=== PATIENT | female | born 2000 | race Caucasian/White ===

== ENCOUNTER → 2025-01-20 15:09 | Outpatient (REF) | payer BC, SELFPAY | LOC: HWRAD 15:09 | PROVIDERS: ATTENDING PHYSICIAN Nurse Practitioner Family | DX: R07.81 Pleurodynia (principal); M94.0 Chondrocostal junction syndrome [Tietze] | CPT/HCPCS: 71111 ==

== ENCOUNTER 2025-02-18 07:41 | Emergency (ER) | payer BC, SELFPAY ==
[2025-02-18 07:46] VITALS: BP 114/84
[2025-02-18 08:12] VITALS: BMI 24.6
--- NOTE | 2025-02-18 08:53 | ED.GENMED ---
History of Present Illness
General
Chief Complaint: Headache
Source: patient and records
Exam Limitations: none
Time Seen by Provider: 02/18/25 07:55
Nursing documentation reviewed up to this point in time: agreed with
History of Present Illness
History of Present Illness:
24-year-old female with past medical history of migraines and vertigo presents to the emergency room for evaluation of headache and multiple other complaints. Patient reports symptoms have been ongoing for about a week�initially they had been
improving but over the past 24 hours she feels they have flared up once again. She reports diffuse pressure like headache associated with some photosensitivity, nausea and vomiting. She has some dizziness. She says the symptoms are typical for
her usual migraines. She says it has been quite sometime since her last migraine but when they get this severe she typically needs to receive IV medications. She does note that she has recently had URI symptoms with congestion and cough that she
thinks may have triggered her symptoms.
Past History
Past History
ED Past Medical History: Other (migraine HAs)
ED Past Surgical History: Other ([place] teeth)
Social History
Tobacco: Non-smoker
Alcohol: None
Drug: None
Personal: Single
Living: with family
Employment: Student
Review of Systems
Review of Systems
All Other Systems: ROS reviewed and negative except as documented in HPI and ROS
Constitutional: Reports fatigue; Denies fever or chills
EENT: Reports runny nose
Respiratory: Reports cough
Cardiac: Denies chest pain
ABD/GI: Reports nausea and vomiting; Denies abdominal pain
: Denies flank pain
Musculoskeletal: Denies neck pain or back pain
Neurological: Reports dizzy and headache
Phy Exam
Physical Exam
Physical Exam:
General: Awake, alert, laying still in a dark room
Head: Normocephalic, atraumatic
Eyes: Conjunctiva normal, EOMI, pupils equal round and reactive to light bilaterally
Throat: Airway intact, handling secretions, dry mucous membranes
Neck: Trachea midline, supple without meningismus
Lungs: Clear to auscultation bilaterally, no wheezing, rales, rhonchi
Heart: Tachycardia with regular rhythm, no murmurs, gallops, or rubs
Abd: Soft, non distended, nontender
Neuro: Cranial nerves intact, speech fluid, motor and sensory intact in all extremities
Skin: no rash
Extremities: Warm and well-perfused
Scores
Heart Failure Risk
Heart Failure Risk Score: Not Applicable
Heart Score for Chest Pain Patients
STEMI patient?: Not applicable
Withdrawal Assessment of Alcohol
Withdrawal Assessment Completed?: Not applicable
Course
Orders/Labs/Results
Orders:
Orders
02/18/25 08:08
Diphenhydramine [Benadryl] 25 mg IV NOW STA
Ketorolac [Toradol] 15 mg IV NOW STA
Metoclopramide [Reglan] 10 mg IV NOW STA
Test Result ONCE
02/18/25 08:09
0.9% Sodium Chloride 1000 ml [Nss] 1,000 ml IV BOLUS
02/18/25 09:03
COVID-19 Antigen Urgent
Source: Nasal Swab
Complete Blood Count/With Diff Urgent
Manual Differential Urgent
Influenza A+B Rapid Molecular Urgent
CASSANDRA Source: Nasal Swab
Specimen Description:
02/18/25 09:27
Add On- LAB Urgent
Tests Added?: monotest
02/18/25 10:06
Comprehensive Metabolic Panel Urgent
HCG, Serum Qualitative Screen Urgent
Monotest Urgent
Comment: ADD ON
Abnormal Lab Results
02/18/25 02/18/25
09:03 10:06
WBC 2.6 L 10^3/uL
(4.8-10.8)
MPV 12.2 H fL
(7.4-10.4)
Abs Neuts (Manual) 0.8 L* 10^3/uL
(1.4-6.5)
Segmented Neutrophils 31 L %
(42-75)
Calcium 8.3 L mg/dl
(8.4-10.2)
Total Bilirubin 1.5 H mg/dl
(0.2-1.3)
Total Protein 6.2 L g/dl
(6.3-8.2)
02/18/25 09:03
02/18/25 10:06
Vital Signs
Initial and Last Documented VS:
Initial Vital Signs
Temp Pulse Resp BP Pulse Ox
36.6 C 124 18 114/84 99
02/18/25 07:46 02/18/25 07:46 02/18/25 07:46 02/18/25 07:46 02/18/25 07:46
Last Documented Vital Signs
Temp Pulse Resp BP Pulse Ox
36.6 C 124 18 114/84 99
02/18/25 07:46 02/18/25 07:46 02/18/25 07:46 02/18/25 07:46 02/18/25 07:46
Procedures
IV Access
Indication: RN unable to obtain and Physician skill needed
Performed by:: Alhaji Mahajan MD
Site:: right forearm
Gauge:: 20G
Ultrasound Guidance: Yes
MDM/Problems Addressed
Differential Diagnosis Includes:
Migraine, viral illness, sinus headache, tension headache
MDM/Problems Addressed:
24-year-old female presents with headache associated with dizziness, nausea/vomiting and photosensitivity�she says similar in quality to prior migraines. Symptoms started about a week ago in the setting of URI symptoms initially had been improving
but over the past 24 hours she feels they have worsened once again. She says that when symptoms become severe like that she typically needs to go to the emergency room for medication. She is tachycardic but has otherwise normal vitals. Physical
exam as above. Will plan to place an IV check labs including a CBC and a CMP, hCG. Swab for COVID and flu. Will treat with fluids, Reglan, Benadryl, Toradol. Considered CT head but given that she has a known history of migraines and she feels
this is similar quality and given that she has a normal neurologic examination here I feel there is no indication for emergent head imaging at this point in time. Will monitor very closely reassess after the above.
Labs reviewed: CBC shows neutropenia, CMP no clinically significant abnormalities. Patient is positive for influenza B which certainly accounts for her symptoms. I suspect viral illness accounts for her neutropenia. Nevertheless given her reported
fever will discuss with hematology.
Discussed with hematology agree likely viral neutropenia. Patient feeling better after treatment here. Vital signs normalized. She is outside window of benefit for Tamiflu. Plan for discharge with supportive care. Spoke about return precautions
all questions answered.
Chronic conditions affecting care:
Migraines
*Pulse Oximetry
Patient hypoxic: no
*Critical Care Note
Total Time (30-74mins, 75-104mins- exclusive of procedures): Not Applicable
Data Reviewed
Source: patient
Further Testing Considered But Not Given:
Considered CT head
Patient Management
Discussion with other providers: Multifocal Lens Assembler (Discussed with hematology)
ED Attending Note
-
Portions of this chart may have been created with voice recognition software.� Occasional wrong word or��sound alike� substitutions may have occurred due to the inherent limitations of voice recognition software.
Discharge Plan
Departure
Patient Disposition: Home (Routine Discharge)
Date of Disposition: 02/18/25
Time of Disposition: 11:00
Patient with high blood pressure during this ER visit?: No
Discharge Problem:
Influenza
Instructions: Flu in adults - Discharge instructions
Prescriptions:
No Action
Control Pills
1 tab PO DAILY
ondansetron HCl 4 mg tablet
4 mg PO Q6H PRN (Reason: nausea and vomiting) Qty: 10 0RF
Referrals:
UNKNOWN - PT DOES,NOT KNOW [Family Provider] -
Activity Restrictions/Additional Instructions:
Thank you for visiting the Emergency Department at [facility].
1. Please schedule a follow up appointment as directed. Call first thing tomorrow morning to make an appointment.
2. If indicated, please take your medications as instructed and indicated on discharge paperwork.
3. If any of your symptoms do not improve, or persist, or become more severe within 6-12 hours, please return to the emergency department for further care.
4. Please return to the emergency department if you develop a headache, neck pain/stiffness, fever greater than 100.4F, chest pain, shortness of breath, persistent nausea, vomiting, slurred speech, difficulty walking, numbness/tingling, weakness,
signs of infection or any other symptoms that are worrisome to you.
Please call [phone] if you have any questions.
Interventions
Interventions:
*Risk Screen - Suicide Last Done: 02/18/25 07:46
*General Assessment Last Done: 02/18/25 07:46
*Neglect/Abuse Screening Last Done: 02/18/25 07:46
*ED- Fall Risk Assessment Last Done: 02/18/25 09:13
*ED COVID-19 Vaccine History Last Done: 02/18/25 09:13
ED- Neurological Assessment Last Done: 02/18/25 09:14
Discharge Date and Time
Print Language: KAZAKH
[2025-02-18] MEDS: NSS 1000 IV (08:54)
[2025-02-18] MEDS: TORADOL 15 MG IV (08:54)
[2025-02-18] MEDS: BENADRYL 25 MG IV (08:55)
[2025-02-18] MEDS: REGLAN 10 MG IV (08:56)
[2025-02-18 09:22] LABS: Hematocrit 38.3 % (37.0-47.0); Hemoglobin 13.6 g/dL (12.0-16.0); Mean Corp Hgb Conc. 35.5 g/dL (33.0-37.0); Mean Corpuscular Hgb 29.1 pg (27.0-31.0); Mean Corpuscular Volume 81.8 fL (81.0-99.0); Mean Platelet Volume 12.2 fL (7.4-10.4); Platelet Count 141 10^3/uL (130-400); Red Blood Cell Count 4.68 10^6/uL (4.20-5.40); Red Cell Dist. Width 12.2 % (11.5-14.5); White Blood Cell Count 2.6 10^3/uL (4.8-10.8)
[2025-02-18 09:29] LABS: COVID-19 Antigen Negative (Negative)
[2025-02-18 10:30] LABS: HCG, Serum Qualitative Screen Negative
[2025-02-18 10:33] LABS: ALT (SGPT) 21 U/L (0-35); AST (SGOT) 31 U/L (14-36); Albumin 3.7 g/dl (3.5-5.0); Alkaline Phosphatase 66 U/L (38-126); Blood Urea Nitrogen 10 mg/dl (7-17); Calcium 8.3 mg/dl (8.4-10.2); Carbon Dioxide 23 mmol/L (22-30); Chloride 106 mmol/L (98-107); Estimated Creatinine Clearance 115 ml/min; Glucose 99 mg/dl (70-99); Potassium 3.7 mmol/L (3.5-5.1); Sodium 139 mmol/L (135-145); Total Bilirubin 1.5 mg/dl (0.2-1.3); Total Protein 6.2 g/dl (6.3-8.2); eGFR > 60.00
[2025-02-18 10:36] LABS: Band Neutrophils 0 % (0-3)
[2025-02-18 10:37] LABS: Atypical Lymphocytes 6 %; Eosinophils 3 % (0-6); Lymphocytes 51 % (20-51); Monocytes 9 % (2-9); Platelets Checked Yes; Segmented Neutrophils 31 % (42-75)
[2025-02-18 10:41] LABS: Normal RBC Morphology Yes
[2025-02-18 10:42] LABS: Absolute Neutrophils -Man Diff 0.8 10^3/uL (1.4-6.5); Total Cells Counted 100
[2025-02-18 10:55] LABS: Monotest Negative (Negative)
[2025-02-18 10:56] VITALS: BP 107/75
[2025-02-18 11:00] VITALS: BP 107/71
[2025-02-18 11:16] VITALS: BP 107/71
== END 2025-02-18 11:18 | disposition home or self-care (01) ==
LOC: EMR 07:41
PROVIDERS: EMERGENCY PHYSICIAN Emergency Medicine
DX: J10.1 Influenza due to other identified influenza virus with other respiratory manifestations (principal); G43.909 Migraine, unspecified, not intractable, without status migrainosus; Z11.52 Encounter for screening for COVID-19
CPT/HCPCS: 96374; 96375; 96361; 99284; 80053; 84703; 85025; 86308; 87502; 87811

== ENCOUNTER 2025-02-19 12:22 | Emergency (ER) | payer BC, SELFPAY ==
[2025-02-19 12:25] VITALS: BP 129/89
--- NOTE | 2025-02-19 13:51 | ED.GENMED ---
History of Present Illness
General
Chief Complaint: Headache
Source: patient
Exam Limitations: none
Time Seen by Provider: 02/19/25 13:44
History of Present Illness
History of Present Illness:
See MDM
Past History
Past History
ED Past Medical History: Other (migraine HAs)
ED Past Surgical History: Other ([place] teeth)
Social History
Tobacco: Non-smoker
Alcohol: None
Drug: None
Personal: Single
Living: with family
Employment: Student
Phy Exam
Physical Exam
Physical Exam:
See MDM
Course
Orders/Labs/Results
Orders:
Orders
02/19/25 13:50
CT Head W/o Iv Contrast Urgent
Comment:
Reason For Exam: persistent headache
0.9% Sodium Chloride 1000 ml [Nss] 1,000 ml IV BOLUS
Diphenhydramine [Benadryl] 25 mg IV NOW STA
Ketorolac [Toradol] 30 mg IV NOW STA
Metoclopramide [Reglan] 10 mg IV NOW STA
02/19/25 14:02
Complete Blood Count/With Diff Urgent
Comprehensive Metabolic Panel Urgent
02/19/25 14:56
Butalb/Acetaminophen/Caffeine [Fioricet] 1 tab PO NOW STA
Abnormal Lab Results
02/19/25
14:02
WBC 3.0 L 10^3/uL
(4.8-10.8)
MPV 11.3 H fL
(7.4-10.4)
Absolute Lymphs (auto) 0.9 L 10^3/uL
(1.2-3.4)
Glucose 104 H mg/dl
(70-99)
AST 41 H U/L
(14-36)
ALT 45 H U/L
(0-35)
02/19/25 14:02
02/19/25 14:02
Vital Signs
Initial and Last Documented VS:
Initial Vital Signs
Temp Pulse Resp BP Pulse Ox
98.1 F 96 16 129/89 96
02/19/25 12:25 02/19/25 12:25 02/19/25 12:25 02/19/25 12:25 02/19/25 12:25
Last Documented Vital Signs
Temp Pulse Resp BP Pulse Ox
98.1 F 96 16 129/89 96
02/19/25 12:25 02/19/25 12:25 02/19/25 12:02/19/25 12:02/19/25 12:25
MDM/Problems Addressed
Differential Diagnosis Includes:
HPI and MDM Narrative:
25-year-old female presenting to the emergency department for persistent headache. She was seen yesterday and diagnosed with migraine which was likely related to the baby. At that time, she was found to be neutropenic which was likely viral
mediated. Because symptoms have persisted, will recheck blood work and obtain CT at this point. Patient is more concerned about the persistent headache and persistent nausea. Will provide IV fluids
Physical exam
General: Mildly uncomfortable, sitting in a dark room
HEENT: protecting airway. Pupils equal and reactive
Neck: supple
CV: No evidence of cyanosis
Resp: No accessory muscle use
Abd: Non-distended
Extremities: No deformities
Neuro: alert
Psych: Normal affect
Skin: Intact
Problems Addressed including Acute and Chronic Conditions affecting care:
1. Headache
Acuity: acute
Prognosis: stable
Details: Given the persistent nature and will obtain CT head. Will IV Toradol, IV Reglan and IV Benadryl
Updates
CT head negative. Neutropenia resolved. Patient feeling and feels comfortable going home
Differential Diagnosis (but not limited to): Migraine, viral syndrome, tension headache
Testing considered: Viral testing
Drug therapy (if applicable): OTC meds, please see d/c instruction regarding Rx drugs
Amount and/or Complexity of Data Reviewed
Clinical info obtained from: Patient
External data reviewed: N/A
Labs I independently reviewed (but not limited to): Mild leukopenia
Radiology: The CT scan was personally and independently reviewed. In addition, official CT report reviewed.
Pulse Ox: not hypoxic
EKG independently reviewed: N/A
Smeller: N/A
Critical Care: N/A
Risk of Complication:
Social Determinants of health: Good social support
Discussed with other providers: N/A
Escalation of Care includes Admit/Obs: After being observed in the Emergency Department, pt stable for discharge.
Occasional wrong word or 'sound a like' substitutions may have occurred due to the inherent limitations of voice recognition software. Read the chart carefully and recognize, using context, where substitutions have occurred.
*Critical Care Note
Total Time (30-74mins, 75-104mins- exclusive of procedures): Not Applicable
ED Attending Note
-
Portions of this chart may have been created with voice recognition software.� Occasional wrong word or��sound alike� substitutions may have occurred due to the inherent limitations of voice recognition software.
Discharge Plan
Departure
Patient Disposition: Home (Routine Discharge)
Date of Disposition: 02/19/25
Time of Disposition: 16:45
Patient with high blood pressure during this ER visit?: No
Discharge Problem:
Migraine
Instructions: Headache, Adult (DC)
Prescriptions:
New
ondansetron 4 mg Tablet,Disintegrating
4 mg PO BIDPRN PRN (Reason: nausea/vomiting) Qty: 10 0RF
vroiytvdrp-sworruyinumze-knai [Fioricet] 50-300-40 mg capsule
1 cap PO Q8H PRN (Reason: headache) Qty: 14 0RF
No Action
Control Pills
1 tab PO DAILY
ondansetron HCl 4 mg tablet
4 mg PO Q6H PRN (Reason: nausea and vomiting) Qty: 10 0RF
Referrals:
Amita Larios CRNP [Family Provider] -
Activity Restrictions/Additional Instructions:
Please return for any worsening symptoms.
You may return at any time if you have further concerns.
Please follow up with your doctor at the first available appointment, preferably this week.
Thank you for choosing [facility].
Interventions
Interventions:
*Risk Screen - Suicide Last Done: 02/19/25 12:25
*General Assessment Last Done: 02/19/25 14:23
*Neglect/Abuse Screening Last Done: 02/19/25 12:25
*ED- Fall Risk Assessment Last Done: 02/19/25 14:23
*ED COVID-19 Vaccine History Last Done: 02/19/25 14:23
ED- Neurological Assessment Last Done: 02/19/25 14:24
Discharge Date and Time
Print Language: ROMANIAN
[2025-02-19] MEDS: BENADRYL 25 MG IV (14:07)
[2025-02-19] MEDS: REGLAN 10 MG IV (14:07)
[2025-02-19] MEDS: TORADOL 30 MG IV (14:07)
[2025-02-19] MEDS: NSS 1000 IV (14:08)
[2025-02-19 14:23] VITALS: BMI 23.7
[2025-02-19 14:35] LABS: Hematocrit 37.1 % (37.0-47.0); Mean Corpuscular Hgb 29.1 pg (27.0-31.0); Mean Corpuscular Volume 83.2 fL (81.0-99.0); Mean Platelet Volume 11.3 fL (7.4-10.4); Platelet Count 170 10^3/uL (130-400); Red Blood Cell Count 4.46 10^6/uL (4.20-5.40); Red Cell Dist. Width 12.3 % (11.5-14.5)
[2025-02-19 14:45] LABS: ALT (SGPT) 45 U/L (0-35); AST (SGOT) 41 U/L (14-36); Albumin 4.5 g/dl (3.5-5.0); Alkaline Phosphatase 76 U/L (38-126); Blood Urea Nitrogen 7 mg/dl (7-17); Calcium 9.5 mg/dl (8.4-10.2); Carbon Dioxide 29 mmol/L (22-30); Chloride 104 mmol/L (98-107); Estimated Creatinine Clearance 100 ml/min; Glucose 104 mg/dl (70-99); Potassium 4.6 mmol/L (3.5-5.1); Sodium 144 mmol/L (135-145); Total Bilirubin 1.3 mg/dl (0.2-1.3); Total Protein 7.5 g/dl (6.3-8.2); eGFR > 60.00
[2025-02-19] MEDS: FIORICET 1 TAB PO (14:58)
[2025-02-19 15:21] LABS: % Eosinophils 0.3 % (0-6); % Immature Granulocytes 0.3 % (0-0.5); % Lymphocytes 28.7 % (20.5-51.1); % Monocytes 8.1 % (1.7-9.3); % Neutrophils 62.6 % (42.2-75.2); Absolute Lymphocytes 0.9 10^3/uL (1.2-3.4); Absolute Monocytes 0.2 10^3/uL (0.1-0.6); Absolute Neutrophils 1.9 10^3/uL (1.4-6.5); Nucleated Red Blood Cells % 0 %
[2025-02-19 16:47] VITALS: BP 126/74
== END 2025-02-19 17:14 | disposition home or self-care (01) ==
LOC: EMR 12:22
PROVIDERS: EMERGENCY PHYSICIAN Student in an Organized Health Care Education/Training Program; FAMILY PHYSICIAN Nurse Practitioner Family
DX: G43.909 Migraine, unspecified, not intractable, without status migrainosus (principal); D70.9 Neutropenia, unspecified
CPT/HCPCS: 96374; 96375; 96361; 99284; 70450; 80053; 85025

== ENCOUNTER 2025-02-21 12:11 | Emergency (ER) | payer BC, SELFPAY ==
[2025-02-21 12:15] VITALS: BP 124/89
[2025-02-21 14:00] VITALS: BP 122/84
--- NOTE | 2025-02-21 14:07 | ED.GENMED ---
History of Present Illness
General
Chief Complaint: Cold/Flu/URI Symptoms
Source: patient
Exam Limitations: none
Time Seen by Provider: 02/21/25 13:13
Nursing documentation reviewed up to this point in time: agreed with
History of Present Illness
History of Present Illness:
pt is a 25 y/o F
with h/o migraines, hadn't had one in a few years
but had URI last week and it triggered migraine, typical bitemporal with dizziness nauesa and vomiting, photophobia
she came here on 02/18 and was seen, tested + for influenza B
she also had wbc 2.2 with neutropenia but was felt to be viral induced
pt given migraine cocktail and improved
she went home and had rebound headache, nausea/vomiting and returned 02/19
her wbc improved to 3.3 and ANC [address] which was neg
was given reglan, toradol, ebenadryl and fioricet with resolution of sypmtoms
she also had resolution of sypmtoms
went home with zofran and fioricet
says she had a good day yesterday until trying to fall asleep when headache returned with nausea/vomiting
she vomited many times overnight, mbut mostly water/miniaml emesis
pt has headache / slowly onset
bitemporal
worse with
Past History
Past History
ED Past Medical History: Other (migraine HAs)
ED Past Surgical History: Other ([place] teeth)
Social History
Tobacco: Non-smoker
Alcohol: None
Drug: None
Personal: Single
Living: with family
Employment: Student
Review of Systems
Review of Systems
Allergies reviewed?: Yes
All Other Systems: Not applicable
Phy Exam
Physical Exam
Physical Exam:
GENERAL: Alert , in no apparent distress
HEAD: NCAT
EYE: pupils equal and reactive, no nystagmus, minimal photophobia
NECK: Supple,full rom, nontender, no meningimsums
ENT: o/p clr, mmm.
CARDIAC: Regular rate and rhythm . no edema
LUNGS: Clear breath sounds bilaterally, no acute respiratory distress, no wheezes/rales/rhonchi
ABDOMEN: Soft, without focal tenderness, no r/g, no cvat
NEUROLOGICAL: Alert and orientedx 4, cn intact, no facial asymmetry, 5/5 strength in UE/LE, sensation intact, romberg neg, ambulates without assistance, neg pronator drift
SKIN: Warm and dry, skin intact.
MUSCULOSKELETAL: No edema, well perfused.
PSYCH: Normal and appropriate interaction.
Course
Orders/Labs/Results
Orders:
Orders
02/21/25 14:01
0.9% Sodium Chloride 1000 ml [Nss] 1,000 ml IV BOLUS
Diphenhydramine [Benadryl] 25 mg IV NOW STA
Ketorolac [Toradol] 15 mg IV NOW STA
Metoclopramide [Reglan] 10 mg IV NOW STA
02/21/25 14:02
Electrocardiogram (*1) Urgent
Reason for Study: QTc Monitoring
EKG- Treatment ONCE
Test Result ONCE
02/21/25 14:48
Complete Blood Count/With Diff Urgent
Comprehensive Metabolic Panel Urgent
HCG, Serum Qualitative Screen Urgent
02/21/25 16:45
Valproate Sodium [Depacon] 500 mg 0.9% Sodium Chloride 50 ml [Nss] 50 ml IV NOW
Abnormal Lab Results
02/21/25
14:48
WBC 3.9 L 10^3/uL
(4.8-10.8)
RBC 3.89 L 10^6/uL
(4.20-5.40)
Hgb 11.3 L g/dL
(12.0-16.0)
Hct 32.0 L %
(37.0-47.0)
MPV 11.3 H fL
(7.4-10.4)
Monocytes % 10.8 H %
(1.7-9.3)
BUN 5 L mg/dl
(7-17)
AST 56 H U/L
(14-36)
ALT 97 H U/L
(0-35)
02/21/25 14:48
02/21/25 14:48
Vital Signs
Initial and Last Documented VS:
Initial Vital Signs
Temp Pulse Resp BP Pulse Ox
36.8 C 84 16 124/89 98
02/21/25 12:15 02/21/25 12:15 02/21/25 12:15 02/21/25 12:15 02/21/25 12:15
Last Documented Vital Signs
Temp Pulse Resp BP Pulse Ox
36.9 C 71 18 122/75 100
02/21/25 15:58 02/21/25 16:00 02/21/25 16:00 02/21/25 16:00 02/21/25 16:00
MDM/Problems Addressed
Differential Diagnosis Includes:
migraine, viral infection, sinusitis, gastroenteritis, less likely meningitis
MDM/Problems Addressed:
enrike alfonso 25 y/o F with h/o migraines previuosly hadn't had one in a few years
had URI last week and came in on 02/18 for migraine typical for previous migraines, a lot of nausea/vomiting and lightheadedness with bitemporal headache
reglan/toradol/bendaryl helped
she was flu B+
had transient neutropenia related to this illness, which resolved
her headache returned on 02/19 and seh came in again
got the same cocktail
and fioricet
went home and did well 02/20
but then last night pain /vomiting returned
here for 3rd visit
labs are improved
reglan/benadryl/toradol given;
exam unremarkable, nontender abdomen, normal neuro exam, no meninigsmus
ct from previous ed visit showed sinusitis
pt having frontal headache, perhaps now needs abx for sinusitis
d/w neurologist dr. barone recommended dose ofdepakote here and the home with medrol dose poli
pt agreeable
she feels much better
*Critical Care Note
Total Time (30-74mins, 75-104mins- exclusive of procedures): Not Applicable
ED Attending Note
-
Portions of this chart may have been created with voice recognition software.� Occasional wrong word or��sound alike� substitutions may have occurred due to the inherent limitations of voice recognition software.
Discharge Plan
Departure
Patient Disposition: Home (Routine Discharge)
Date of Disposition: 02/21/25
Time of Disposition: 17:19
Patient with high blood pressure during this ER visit?: No
Discharge Problem:
Acute sinusitis, Intractable migraine
Instructions: Migraine in adults
Prescriptions:
New
methylprednisolone [Medrol (Poli)] 4 mg tablets,dose pack
See Rx Instructions .ROUTE .COMPLEX Qty: 21 0RF
Rx Instructions:
for 6 days
amoxicillin-pot clavulanate 875-125 mg tablet
1 tab PO BID Qty: 14 0RF
No Action
Control Pills
1 tab PO DAILY
ondansetron HCl 4 mg tablet
4 mg PO Q6H PRN (Reason: nausea and vomiting) Qty: 10 0RF
ondansetron 4 mg Tablet,Disintegrating
4 mg PO BIDPRN PRN (Reason: nausea/vomiting) Qty: 10 0RF
xxeatiggoz-whmsvzbuoxrqr-pcot [Fioricet] 50-300-40 mg capsule
1 cap PO Q8H PRN (Reason: headache) Qty: 14 0RF
Referrals:
Steve Davis MD [Active] - Follow up in 10 days
Amita Larios CRNP [Family Provider] -
Activity Restrictions/Additional Instructions:
YOU WERE GIVEN A DOSE OF DEPAKOTE FOR YOUR HEADACHE
WHICH HOPEFULLY WILL HELP IT FROM RECURRING
BUT ALSO START THE MEDROL DOSE POLI TOMORROW MORNING AND FOLLOW INSTRUCTIONS ACROSS THE PACKET FOR EACH DAY TO HELP WITH REBOUND HEADACHE
THIS IS A STEROID
TAKE THE FIORICET NEEDED WELL
BUT HOPEFULLY THE FIORICET AND THE MEDROL DOSE POLI HELP
YOU SHOULD SEE A NEUROLOGIST
RETURNFOR: NECK STIFFNESS, HIGH FEVER, SEVERE VOMITING, SEVERE HEADACHE OR ANY CONCERNS.
TAKE AUGMENTIN TWICE A DAY TO TREAT YOUR SINUS INFECTION
Interventions
Interventions:
*Risk Screen - Suicide Last Done: 02/21/25 12:15
*General Assessment Last Done: 02/21/25 14:00
*Neglect/Abuse Screening Last Done: 02/21/25 12:15
*ED- Fall Risk Assessment Last Done: 02/21/25 14:00
*ED COVID-19 Vaccine History Last Done: 02/21/25 14:00
*Nursing Disposition Last Done: 02/21/25 17:15
ED- Pulmonary Assessment Last Done: 02/21/25 14:00
Discharge Date and Time
Discharge Date/Time: 02/21/25 17:15
Print Language: FAROESE
[2025-02-21 14:28] VITALS: BMI 24.5
[2025-02-21] MEDS: BENADRYL 25 MG IV (14:37)
[2025-02-21] MEDS: TORADOL 15 MG IV (14:38)
[2025-02-21] MEDS: REGLAN 10 MG IV (14:38)
[2025-02-21] MEDS: NSS 1000 IV (14:38)
[2025-02-21 15:00] LABS: % Basophils 0.3 % (0-2); % Eosinophils 0.5 % (0-6); % Immature Granulocytes 0.5 % (0-0.5); % Monocytes 10.8 % (1.7-9.3); % Neutrophils 50.9 % (42.2-75.2); Absolute Lymphocytes 1.4 10^3/uL (1.2-3.4); Absolute Monocytes 0.4 10^3/uL (0.1-0.6); Hemoglobin 11.3 g/dL (12.0-16.0); Mean Corp Hgb Conc. 35.3 g/dL (33.0-37.0); Mean Corpuscular Volume 82.3 fL (81.0-99.0); Mean Platelet Volume 11.3 fL (7.4-10.4); Nucleated Red Blood Cells % 0 %; Platelet Count 199 10^3/uL (130-400); Red Blood Cell Count 3.89 10^6/uL (4.20-5.40); Red Cell Dist. Width 11.9 % (11.5-14.5); White Blood Cell Count 3.9 10^3/uL (4.8-10.8)
[2025-02-21 15:06] LABS: HCG, Serum Qualitative Screen Negative
[2025-02-21 15:08] LABS: ALT (SGPT) 97 U/L (0-35); AST (SGOT) 56 U/L (14-36); Albumin 3.7 g/dl (3.5-5.0); Alkaline Phosphatase 65 U/L (38-126); Blood Urea Nitrogen 5 mg/dl (7-17); Calcium 9.1 mg/dl (8.4-10.2); Carbon Dioxide 28 mmol/L (22-30); Chloride 106 mmol/L (98-107); Estimated Creatinine Clearance 100 ml/min; Glucose 91 mg/dl (70-99); Potassium 4.2 mmol/L (3.5-5.1); Sodium 140 mmol/L (135-145); Total Bilirubin 0.8 mg/dl (0.2-1.3); Total Protein 6.5 g/dl (6.3-8.2); eGFR > 60.00
[2025-02-21 15:58] VITALS: BP 112/82
[2025-02-21 16:00] VITALS: BP 122/75
[2025-02-21] MEDS: DEPACON 55 MG IV (17:06)
== END 2025-02-21 17:15 | disposition home or self-care (01) ==
LOC: EMR 12:11
PROVIDERS: Physician Assistant; EMERGENCY PHYSICIAN Emergency Medicine; FAMILY PHYSICIAN Nurse Practitioner Family
DX: J01.90 Acute sinusitis, unspecified (principal); G43.919 Migraine, unspecified, intractable, without status migrainosus; R11.2 Nausea with vomiting, unspecified; J10.2 Influenza due to other identified influenza virus with gastrointestinal manifestations
CPT/HCPCS: 99284; 96374; 96375 ×3; 96361; 80053; 84703; 85025; 93005

== ENCOUNTER → 2025-08-17 06:47 | Outpatient (REF) | payer OTHER, SELFPAY | LOC: MRI 06:47 | PROVIDERS: ATTENDING PHYSICIAN Nurse Practitioner; FAMILY PHYSICIAN Family Medicine | DX: G58.0 Intercostal neuropathy (principal); R07.89 Other chest pain; M54.14 Radiculopathy, thoracic region | CPT/HCPCS: 72146 ==